=== PATIENT | male | born 1940 | race Caucasian/White ===

== ENCOUNTER 2016-11-03 23:16 | Emergency (ER) | payer OTHER ==
[~2016-11-03] VITALS: Ht 170.2 cm; Wt 79.4 kg
[~2016-11-03 23:16] MED LIST: AMLODIPINE BESYL5 MG ORAL; ASPIR 8181 MG ORAL; LEVAQUIN500 MG ORAL; METRONIDAZOLE500 MG ORAL; NORCO 5-325 TA1 EACH ORAL; OMEPRAZOLE20 M3 ORAL; PROSCAR5 MG ORAL; ROBAXIN-750750 MG PO; SIMVASTATIN20 MG; TENORMIN25 MG ORAL; ZOLPIDEM TARTRA10 MG
[2016-11-04] MEDS ORDERED: TAMSULOSIN HCL0.4 MG ORAL (00:03)
[2016-11-04] MEDS ORDERED: DEBROX15 M1 BOTH EARS (00:50)
[2016-11-04 01:03] VITALS: BP 166/99
--- NOTE | 2016-11-04 08:11 | Emergency Room Report ---
History of Present Illness General Chief Complaint: Earache Source: Patient Present Illness HPI 76 YO M with left ear decreased hearing, pain, concerned part of Qtip broke off when cleaning ears earlier today. Denies fever/chills, external ear pain. Denies discharge or bleeding from ear. Allergies: Coded Allergies: No Known Allergies (Unverified , 05/20/13) Patient History Past Medical History: see triage record, old chart reviewed Past Surgical History: none Pertinent Family History: none Social History: Denies: alcohol use, drug use, smoking Immunizations: UTD Reviewed Nursing Documentation: PMH: Agreed, PSxH: Agreed Nursing Documentation-PMH Past Medical History: No History, Except For Hx Hypertension: Yes Hx Pacemaker: No Hx Asthma: No Hx COPD: No Hx Diabetes: No Hx Cancer: No Hx Gastrointestinal Problems: Yes Hx Dialysis: No Hx Neurological Problems: No Hx Cerebrovascular Accident: No Hx Seizures: No Review of Systems All Other Systems: negative except mentioned in HPI Physical Exam Vital Signs Date Time Temp Pulse Resp B/P Pulse Ox O2 Delivery O2 Flow Rate FiO2 11/03/16 23:47 98.4 72 16 149/79 96 Room Air Procedures Additional Procedure Procedure Narrative Foreign body removal left ear Patient positioned sitting upright Foreign body white visualized in middle of left canal Grasped with alligator forceps inserted thru otoscope and removed Rechecked left ear to confirm no FB remained Medical Decision Making Diagnostic Impression: Primary Impression: Earache, left Additional Impression: Foreign body in left ear, initial encounter ER Course Foreign body removed from left ear TM visualized, no perforation or bleeding or discharged Patient notes improved hearing, reduction of pain to left ear Advised to NEVER use Qtips to clean ear Rx debrox given DC home Last Vital Signs Date Time Temp Pulse Resp B/P Pulse Ox O2 Delivery O2 Flow Rate FiO2 11/04/16 01:03 98.4 67 16 166/99 96 Room Air Status: improved Disposition: HOME, SELF-CARE Condition: Improved Scripts Carbamide Peroxide (DEBROX) 15 Ml Drops 5 DROP BOTH EARS TWICE A DAY for 4 Days, ML 0 Refills Prov: YAN ROBERTS M.D. 11/04/16 Referrals: [facility],REFERRING (PCP) Patient Instructions: Ear Foreign Body, [id number] Additional Instructions: - Do NOT use qtips to clean ears - Use debrox drops only as needed YAN ROBERTS M.D. Nov 04, 2016 08:11
== END 2016-11-04 01:08 | disposition home or self-care (01) ==
LOC: EMR 11-04 00:30
DX: H92.02 Otalgia, left ear (principal); T16.2XXA Foreign body in left ear, initial encounter; X58.XXXA Exposure to other specified factors, initial encounter; Y92.009 Unspecified place in unspecified non-institutional (private) residence as the place of occurrence of the external cause; I10 Essential (primary) hypertension